=== PATIENT | male | born 1975 ===

== ENCOUNTER 2025-08-25 17:52 | Observation (INO) | payer OTHER ==
[~2025-08-25] VITALS: Ht 170.2 cm; Wt 67.7 kg
[2025-08-25 23:11] LABS: Alanine Aminotransfer (ALT/SGP 29.0 U/L (12-78); Albumin, Blood 4.0 g/dL (3.4-5.0); Albumin/Globulin Ratio 1.2 (0.8-1.8); Anion Gap 9.0 mmol/L (3-11); Aspartate Aminotrans (AST/SGOT 76.0 U/L (12-37); Bilirubin, Total 0.7 mg/dL (0.1-1.0); Blood Urea Nitrogen 22.0 mg/dL (8-24); CO2, Blood 27.0 mmol/L (21-32); Calcium, Blood 8.6 mg/dL (8.5-10.1); Chloride, Blood 108.0 mmol/L (98-108); Creatinine, Blood 0.82 mg/dL (0.60-1.20); Globulin, Blood 3.4 g/dL (2.2-4.0); Glucose, Blood 85.0 mg/dL (70-99); Potassium, Blood 3.7 mmol/L (3.5-5.5); Sodium, Blood 140.0 mmol/L (136-145); Total Protein, Blood 7.4 g/dL (6.4-8.2)
[2025-08-25 23:58] LABS: BASOPHILS ABSOLUTE AUTO 0.03 K/mm3 (0.00-0.23); BASOPHILS PERCENT AUTO 1 % (0-2); EOSINOPHILS ABSOLUTE AUTO 0.12 K/mm3 (0.00-0.68); EOSINOPHILS PERCENT AUTO 2 % (0-6); Hematocrit 39.8 % (37.0-53.0); Hemoglobin 13.4 g/dL (13.5-17.5); IMMATURE GRAN ABSOLUTE AUTO 0.01 K/mm3 (0.00-0.10); IMMATURE GRAN PERCENT AUTO 0 % (0-1); LYMPHOCYTES ABSOLUTE AUTO 1.50 K/mm3 (0.84-5.20); LYMPHOCYTES PERCENT AUTO 23 % (21-46); MONOCYTES ABSOLUTE AUTO 0.64 K/mm3 (0.16-1.47); MONOCYTES PERCENT AUTO 10 % (4-13); Mean Corpuscular HGB Conc 33.7 g/dL (31.5-36.5); Mean Corpuscular Volume 92 fL (80-100); NEUTROPHILS ABSOLUTE AUTO 4.22 K/mm3 (1.96-9.15); NEUTROPHILS PERCENT AUTO 65 % (41-73); NRBC ABSOLUTE 0.00 K/mm3 (0.00-0.02); NRBC Auto 0.0 /100 WBC (0.0-0.2); Platelet Count 274 K/mm3 (150-400); RDW Coefficient Variation 13.2 % (11.7-14.2); RDW Standard Deviation 44.4 fL (35.1-46.3)
[2025-08-26] MEDS ORDERED: FLU VACC TS2025-26(6MOS UP)/PF 45 MCG/0.5 ML SYRINGE IM SCH (02:35)
[2025-08-26 04:01] VITALS: BP 126/91
[2025-08-26 05:08] LABS: Alanine Aminotransfer (ALT/SGP 32 U/L (12-78); Albumin, Blood 3.9 g/dL (3.4-5.0); Albumin/Globulin Ratio 1.1 (0.8-1.8); Anion Gap 10 mmol/L (3-11); Aspartate Aminotrans (AST/SGOT 78 U/L (12-37); Bilirubin, Total 0.8 mg/dL (0.1-1.0); Blood Urea Nitrogen 20 mg/dL (8-24); CHOL/HDL RATIO 2.2; CO2, Blood 27 mmol/L (21-32); Calcium, Blood 8.6 mg/dL (8.5-10.1); Chloride, Blood 106 mmol/L (98-108); Cholesterol 155 mg/dL (50-200); Creatinine, Blood 0.76 mg/dL (0.60-1.20); Globulin, Blood 3.4 g/dL (2.2-4.0); Glucose, Blood 71 mg/dL (70-99); HDL Cholesterol 71 mg/dL (>39); LDL/HDL RATIO 1.0; Low Density Lipoprotein Chol 73 mg/dL (0-110); Potassium, Blood 3.4 mmol/L (3.5-5.5); Sodium, Blood 140 mmol/L (136-145); Total Protein, Blood 7.3 g/dL (6.4-8.2); Triglycerides 53 mg/dL (30-160); Very Low Density Lipoprot Chol 10 mg/dL (6-32)
[2025-08-26 05:24] LABS: BASOPHILS ABSOLUTE AUTO 0.03 K/mm3 (0.00-0.23); BASOPHILS PERCENT AUTO 1 % (0-2); EOSINOPHILS ABSOLUTE AUTO 0.16 K/mm3 (0.00-0.68); EOSINOPHILS PERCENT AUTO 3 % (0-6); Hematocrit 38.4 % (37.0-53.0); Hemoglobin 12.9 g/dL (13.5-17.5); IMMATURE GRAN ABSOLUTE AUTO 0.01 K/mm3 (0.00-0.10); IMMATURE GRAN PERCENT AUTO 0 % (0-1); LYMPHOCYTES ABSOLUTE AUTO 1.39 K/mm3 (0.84-5.20); LYMPHOCYTES PERCENT AUTO 24 % (21-46); MONOCYTES ABSOLUTE AUTO 0.58 K/mm3 (0.16-1.47); MONOCYTES PERCENT AUTO 10 % (4-13); Mean Corpuscular HGB Conc 33.6 g/dL (31.5-36.5); Mean Corpuscular Volume 93 fL (80-100); NEUTROPHILS ABSOLUTE AUTO 3.66 K/mm3 (1.96-9.15); NEUTROPHILS PERCENT AUTO 63 % (41-73); NRBC ABSOLUTE 0.00 K/mm3 (0.00-0.02); NRBC Auto 0.0 /100 WBC (0.0-0.2); Platelet Count 242 K/mm3 (150-400); RDW Coefficient Variation 13.2 % (11.7-14.2); RDW Standard Deviation 44.9 fL (35.1-46.3)
--- NOTE | 2025-08-26 06:30 | NUR ---
END OF SHIFT REPORT PT ADMITTED TO UNIT FROM ER. PT DENIES ANY CHEST PAIN OR DISCOMFORT. PT STATES HE WAS HAVING CHEST PAIN WHILE EXERCISING IN HIS YARD. TROPONIN RESULTED AT 72 FROM 117. PENDING URINE TOX COLLECTION AND ECHO TODAY. PT UNABLE TO TOLERATE SCDS ON LEGS. VSS. PT IN NSR.
[2025-08-26] MEDS ORDERED: NS 1,000 ML IV SCH (06:45)
[2025-08-26 07:54] VITALS: BP 125/81
[2025-08-26] MEDS ORDERED: Enoxaparin 40 MG/0.4 ML SYR SC SCH (09:00)
[2025-08-26 11:39] VITALS: BP 139/77
[2025-08-26 14:24] LABS: U Amphetamine Screen DETECTED; U Barbituate Screen Not Detected; U Benzodiazapine Screen Not Detected; U Buprenorphine Screen DETECTED; U Cannabinoids Screen Not Detected; U Cocaine Screen Not Detected; U Methadone Screen Not Detected; U Methamphetamine Screen DETECTED; U Opiates Screen Not Detected; U Oxycodone Screen Not Detected; U Phencyclidine Screen Not Detected
[2025-08-26 16:55] VITALS: BP 134/85
--- NOTE | 2025-08-26 18:08 | NUR ---
PT SUMMARY; NO ACUATE CHANGE FOR THE SHIFT. PT RESTED WELL THIS MORNING. VITALS HAS BEEN STABLE HRR SR 70'S, SBP 130'S, ON RA, AFEBRILE. ECHO WAS DONE. STRESS TEST WAS NOT ABLE TO GET DONE, PT HAD SODA THIS MORNING WITH CAFFEINE AND HAD LUNCH. ONE DAY PROTOCOL IN AM PT WAS EDUCATED ABOUT THE TEST. PT ALSO AT LUNCH TIME WAS PACING AROUND BACK AND FORTH IN THE ROOM, UNPLUGGED HIMSELF FROM THE IV WITH THE CLAVE UNDONE SO THE IV WAS LEAKING OUT BLOOD, PT WAS INSTRUCTED MULTIPLE TIMES TO CALL AND NOT TO TOUCH THE IV AND THE PUMP. PT WAS ALSO SHUTTING OFF THE PUMP WITHOUT CALLING THE NURSE. PT ALSO VOIDED A COUPLE TIMES THIS MORNING AFTER THIS RN INSTRUCTED THE PT MULTIPLE TIMES ABOUT UA SAMPLE. PT WAS ABLE TO PROVIDE UA SAMPLE AFTER BLADDER SCANNING AND EDUCATING ABOUT THE NEED TO CATH PT IF UNABLE TO VOID FOR THE SHIFT. UTOX CAME BACK POSITIVE FOR METH, AMP, AND BENZOS. PT TRANSITIONED TO MEDICAL STATUS WITH TELE. WILL REPORT TO ONCOMING SHIFT
--- NOTE | 2025-08-26 20:04 | NUR ---
ASSUMPTION OF CARE ASSUMED PT'S CARE AT 1900.PT AWAKE LYING IN BED.PT STATES THAT HE IS TIRED.PLAN OF CARE REVIEWED.PT DENIES CHEST PAIN,DENIES GENERALIZED PAIN,DENIES SOB,DENIES NEEDS AT THIS TIME.CALL LIGHT AND PT'S ITEMS WITHIN REACH.MONITORING ONGOING PER CAREPLAN.
[2025-08-26 20:49] VITALS: BP 129/83
[2025-08-26 22:05] VITALS: BP 161/90
--- NOTE | 2025-08-26 23:23 | NUR ---
AT 2048,WALKED INTO ROOM TO ASSESS PT.PT SITTING UP IN BED REPORTS THAT HE PULLED THE IV BECAUSE HIS ARM IS SWOLLEN.PT PLACED THE IV IN SINK.PT SAID THAT HE DID NOT WANT THE REST OF THE IV INFUSION.PT INFORMED THAT HE NEEDS ANOTHER PIV INSERTED FOR POSSIBLE MED ADMINISTRATION.PT AGREES TO HAVE ANOTHER IV INSERTED.
--- NOTE | 2025-08-26 23:33 | NUR ---
AT 2205,PT REPORTED CHEST PAIN.SAID THAT WHILE THE CHARGE NURSE WAS ATTEMPTING TO INSERT PIV,HE FELT HIS HEART BEATING FAST,HR 80 ON THE MONITOR.PT SPEAKING IN A RUSHED SPEECH,RESTLESS,VERY ANXIOUS.PT ASKED FOR CAFFEINE OR SOMETHING TO EAT.STATES THAT FOOD/COFFEE USUALLY CALMS HIM DOWN.PT INFORMED THAT HE CANNOT HAVE COFFEE BECAUSE OF THE UPCOMING TEST TOMORROW.PT'S VITAL SIGNS OBTAINED,BP SLIGHLY ELEVATED AT 162/90 (109).CHARGE NURSE WAS NOT ABLE TO INSERT IV,USED THE ULTRASOUND.CHARGE NURSE SAID THAT SHE WILL ASK SOMEONE ELSE TO TRY INSERTING AN IV.PT GIVEN FOOD AND LEMON SODA.HE FELL ASLEEP AND NO LONGER COMPLAINED OF CHEST PAIN.
[2025-08-27 01:02] VITALS: BP 128/82
[2025-08-27 04:13] VITALS: BP 105/73
--- NOTE | 2025-08-27 06:44 | NUR ---
PT MONITORED DURING THE SHIFT.PT FELL ASLEEP AFTER RECEIVING A SNACK AT 2230 AND HAS REMAINED ASLEEP THROUGHOUT THE SHIFT.NO REPORT OF CHEST PAIN/DISCOMFORT.PT HAS BEEN NPO SINCE MIDNIGHT FOR THE 2ND STRESS TEST TODAY.PT STILL SLEEPING AT THIS TIME,EASILY AROUSABLE.PT DENIES PAIN,DENIES NEEDS.CALL LIGHT AND PT'S ITEMS WITHIN REACH.MONITORING ONGING PER CAREPLAN.
[2025-08-27 07:50] VITALS: BP 103/71
--- NOTE | 2025-08-27 08:00 | NUR ---
AM NOTE: PATIENT ALERT AND ORIENTED X4. CALM AND COOPERATIVE WITH CARES. UP IND TO BATHROOM. DENIES PAIN. ON ROOM AIR SATING ABOVE 95%. LUNG SOUNDS CLEAR. DENIES COUGH/SOB. TELE SHOWING SR WITH HR 70-80'S. DENIES CHEST PAIN/PRESSURE/PALPITATIONS. PPP. REFUSED SCD'S. PLAN FOR 2ND PART OF STRESS TEST THIS AM. NPO AT THIS TIME. BOWEL TONES PRESENT. DENIES ABDOMINAL PAIN/NAUSEA. UP IND TO BATHROOM. SKIN C/D/I WITH SOME SCATTERED BRUISING DUE TO IV ATTEMPTS. CALL LIGHT IN REACH. PATIENT DENIES NEEDS AT THIS TIME.
[2025-08-27] MEDS ORDERED: BUPRENORPHINE HC8 MG SL (12:06)
--- NOTE | 2025-08-27 12:29 | NUR ---
PATIENT IV INFILTRATED THIS AM, REFUSING NEW IV AT THIS TIME. PATIENT REFUSING 2ND PORTION OF STRESS TEST. ANGRY AND AT TIMES YELLING AT STAFF. DR. ALCALA TO BEDSIDE AND NO NEW ORDERS.
[2025-08-27] MEDS ORDERED: ASPI81CH PO (13:47)
--- NOTE | 2025-08-27 14:00 | NUR ---
DISCHARGE UPDATE THIS RN ATTEMPTED TO GO OVER DISCHARGE PACKET WITH PT. PT ASKED IF HE NEEDED TO SIGN A PAPER. THIS RN PROVIDED THE SIGNATURE PAPER. PT WAS SIGNING THE DISCHARGE PAPER, THIS RN EXPLAINED THE MEDS. PT REFUSED DISCHARGE PACKET. PT EXITED ROOM AFTER SIGNING AND ASKED FOR THE EXIT. THIS RN DIRECTED PT HOW TO GET TO MAIN ENTERANCE. PT DISCHARGED AT 1400.
== END 2025-08-27 14:00 | disposition home or self-care (01) ==
LOC: ER 17:52 → PCU 17:53
PROVIDERS: Student in an Organized Health Care Education/Training Program; ADMIT Internal Medicine
DX: R07.89 Other chest pain (principal); R20.0 Anesthesia of skin; R06.02 Shortness of breath; E87.6 Hypokalemia; I10 Essential (primary) hypertension; F15.90 Other stimulant use, unspecified, uncomplicated; F17.210 Nicotine dependence, cigarettes, uncomplicated
CPT/HCPCS: 36415; 71046; 71260; 80053; 80061; 83880; 84484; 85025; 85379; 93306; 96372; 99285-25; A9270; G0378; J1650; J7030; Q9967